=== PATIENT | male | born 1955 | race Caucasian/White ===

== ENCOUNTER → 2019-01-18 | Outpatient (CLI) | payer OTHER ==
--- NOTE | 2019-01-18 14:03 | KCIC ---
Standing bilateral 3 view knee History: Chronic bilateral knee pain. TECHNIQUE: Routine multiplanar sequences are obtained. Left knee: No evidence of acute fracture. No bone destruction. Joint spaces are grossly intact with minimal spurring. There is some chronic appearing bone hypertrophy or ossification at the medial femoral condyle the region of the medial collateral ligament attachment. Right knee Mild degenerative spurring. Joint spaces are grossly intact. No evidence of acute fracture or aggressive bone destruction. IMPRESSION: No acute fracture or dislocation. Very mild degenerative spurring. Electronically signed by: Jaime Michaud MD (01/18/2019 1:59 PM) [id number]
== END | disposition home or self-care (01) ==
LOC: KCIC 08:04
PROVIDERS: ATTEND Family Medicine
DX: M76.9 Unspecified enthesopathy, lower limb, excluding foot (principal); G89.29 Other chronic pain
CPT/HCPCS: 73562